=== PATIENT | male | born 1945 | race Caucasian/White ===

== ENCOUNTER 2021-12-20 09:38 | Outpatient (RCR) | payer MEDICARE, SELFPAY ==
--- OUTSIDE RECORDS SUMMARY | 2021-12-01 08:59 | XMS_ITS | Continuity of Care Document ---
:1945 Author Care Team Providers Name Role Phone MD Pham Attending Physician Unavailable MD Garland Guillen Primary Care Physician Allergies, Adverse Reactions, Alerts No known allergies Social History Smoking Status Status Start Date End Date Date of Observat ion Never smoked tobacco January 05, 2021 2:08pm (finding) Observation Status Observation Response Date of Response Health care directive on file December 02, 2020 9:43am Additional Data Assigned Sex Male Problems Active Problems Medical Problem Onset Date Status Chronic myeloid leukemia, March 24, 2012 Active disease Sinusitis, acute Active History of vasectomy Active Medications Medication Status Dose Units Route Directions Qty Days Start End Ins tructions Date Date Ascorbic Acid Active 500 MG OR Twice A Day (Vitamin C) 500 Mg CAP Bosutinib Active 300 MG PO Daily March take 3 - 100 (Bosulif) 100 11, mg tab lets Mg TAB 2020 daily on 10:08am Saturday through Saturday. Cholecalcifer Active 1000 UNIT PO Daily 100 ol (Vitamin D) 1,000 Unit TAB Glucosamine-C Active 1 CAP PO Daily hondroitin (Glucosamine & Chondroitin 500-400 Mg) 1 Cap CAP Multiple Active 1 HIM OR Daily Vitamins W/ Minerals (Multi For Him 50+) For Him TAB Xilwr-7-Uylr Active 1200 MG PO Daily 100 ON HOL D PER Ethyl Esters PATIENT (Fish Oil) 1,200 Mg CAP Amoxicillin Discontin 1000 MG PO Twice Daily 40 Februar Fe brua ued For 10 Days y 2018 10th, 10:24am 2018 11:50a m Amoxicillin Discontin 875 MG PO Twice Daily September ued For 10 Days , 2016 9:46am 3:19pm Benzonatate Discontin 200 MG PO Three Times 30 Februar Fe brua (Tessalon ued A Day as y 10th, ry Perles) 100 needed 2018 10th, Mg CAP 11:46am 2018 11:50a m Bosutinib Discontin 300 MG PO Daily Marchobe dayanara e 3 - 100 (Bosulif) 100 ued 11, r mg tab lets Mg TAB 2020 11, daily. 9:15am 2020 10:08a m Bosutinib Discontin 300 MG PO Daily December take 3 - 100 (Bosulif) 100 ued 7th, r mg tab lets Mg TAB 2020 11, daily. 4:18pm 2020 9:15am Bosutinib Discontin 300 MG PO Daily 90 uadecember take 3 - 100 (Bosulif) 100 ued y 2nd, 7th, mg ta blets Mg TAB 2020 2020 daily. 10:53am 4:18pm Bosutinib Discontin 500 MG PO Daily 30 09 July Februa (Bosulif) 500 ued , ry Mg TAB 2020 07, 11:16am 2020 10:53a m Clindamycin Discontin 300 MG PO Three Times March Oc [facility] Hcl ued A Day r 2017, 3:41pm 2017 2:12pm Covid-19 Discontin 30 MCG IM Once January (Sars-Cov-2) ued , , Mrna Vir 2020 2020 (Pfizer-Biont 9:57am 12:14p ech Covid-19) m 30 Mcg/0.3 Ml INJ Diphtheria/Te Discontin 0.5 ML IM Once 1 Decembe Decemb tanus/Acell ued r , er Pertussis 2011 09, (Adacel) 0.5 2:29pm 2012 Ml INJ 2:32pm Fish Oil Discontin 2000 MG PO As Needed December ued 2019 11:18a m Glucosamine/C Discontin 1 EA PO Twice A Day Oc charity hondroitin ued r , (Glucosamine 2018 Chondroitin) 10:22a TAB m Imatinib Discontin 200 MG PO Daily 60 30 Novembe Januar take 2 Mesylate ued r 11, y tablets d aily 2019, 12:22pm 2020 11:16a m Imatinib Discontin 400 MG PO Daily Juneb Mesylate ued , er 2020 04, 12:36pm 2019 12:22p m Imatinib Discontin 400 MG PO Daily October Mesylate ued , , (Gleevec) 400 2012 2020 Mg TAB 9:36am 11:18a m Imatinib Discontin 400 MG PO Daily October Mesylate ued , (Gleevec) 400 2012 Mg TAB 9:36am Magnesium Discontin 125 MG PO Octobe Citrate (Mg ued r , Supple2017 (Magnesium 10:22a Citrate) 125 m Mg CAP Magnesium Discontin 250 MG OR Daily Octobe Oxide (Mg ued r Supplement , (Magnesium 2016 Oxide) 250 Mg 12:09p TAB m Ugmgl-5-Nhwj Discontin 360 MG PO Twice A Day 100 Oct obe Ethyl Esters ued r (Fish Oil) , 500 Mg CAP 2015 12:09p m Itltz-8-Dplv Discontin 1200 MG OR Twice A Day October Ethyl Esters ued , (Fish Oil) 2014 1,200 Mg CAP 10:54a m Oregano (Oil Discontin 1 SERA OR Daily Octobe Of Oregano) ued r Oil CAP 2013 12:34p m Prednisone Discontin 20 MG PO Daily December ued 2016 3:34pm 2:53pm Prednisone Discontin 20 MG PO Daily September ued , 2012 9:46am 2:40pm Immunizations Immunization Event Date Not Given Dose Hospital Nurse Liaison Lot Vac cine Reason Number Number Informatio n Statement (VIS) Deta il COVID-19 Pfizer June 102020 COVID-19 Pfizer July 122020 COVID-19 Pfizer February 07 PFIZER-BIO 2020 Influenza March 102019 Tdap May 10 sanofi pasteur [id number] (adolescent/adul 2011 t) Medical Equipment Device Date Implanted Device Details TECNIS IOL February 18, 2019 ROBERTO: [id number] Issuing Agency: [id number] Device Id: [id number] Expiration Date: 07-19-13 Serial Number: [id number] Relevant Diagnostic Tests and/or Laboratory Data Laboratory Results Test Date/Time Result Interpretation Reference Result Comment Performing Range Site White Blood November 08, 2.98 5.00-10.00 [facility] Count 2021 [address] [facility] 9:49am [facility] [address] Red Blood November 08, 4.20 4.32-5.72 [facility] Count 2021 [address] [facility] 9:49am [place] [address] Hemoglobin November 08, 13.6 13.5-17.5 [facility] 2021 [address] [facility] 9:49am [place] [address] Hematocrit November 08, 40.5 38.8-50.0 [facility] Lab 2021 [address] [facility] 9:49am [place] [address] Mean November 08, 96 81-95 [facility] Corpuscular 2021 [address] [facility] Volume 9:49am [place] [address] Mean November 08, 32 27-34 [facility] Corpuscular 2021 [address] [facility] Hemoglobin 9:49am [place] [address] Mean November 08, 34 32-36 [facility] Corpuscular 2021 [address] [facility] Hemoglobin 9:49am [place] [address] Concent Platelet November 08, 185 150-450 [facility] Count 2021 [address] [facility] 9:49am [place] [address] RDW November 08, 12.2 11.5-15.3 [facility] Coefficient 2021 [address] [facility] of Variation 9:49am [facility] [place] [address] Neutrophils November 08, 63.5 50.0-70.0 [facility] (%) (Auto) 2021 [address] [facility] 9:49am [place] [address] Lymphocytes November 08, 21.1 25.0-45.0 [facility] (%) (Auto) 2021 [address] [facility] 9:49am [place] [address] Monocytes November 08, 12.4 0.00-11.0 [facility] (%) (Auto) 2021 [address] [facility] 9:49am [place] [address] Eosinophils November 08, 2.3 0.0-7.0 [facility] (%) (Auto) 2021 [address] [facility] 9:49am [place] [address] Basophils November 08, 0.7 0.0-3.0 [facility] (%) (Auto) 2021 [address] [facility] 9:49am [place] [address] Immature November 08, 0.0 [facility] Granulocyte 2021 [address] [facility] % (Auto) 9:49am [place] [address] Neutrophils November 08, 1.89 1.70-7.00 [facility] # (Auto) 2021 [address] [facility] 9:49am [facility] [address] Lymphocytes November 08, 0.63 0.90-2.90 [facility] # (Auto) 2021 [address] [facility] 9:49am [facility] [address] Monocytes # November 08, 0.37 0.30-0.90 [facility] Lab (Auto) 2021 [address] [facility] 9:49am [facility] [address] Eosinophils November 08, 0.07 0.00-0.50 [facility] # (Auto) 2021 [address] [facility] 9:49am [facility] [address] Basophils # November 08, 0.02 0.00-0.20 [facility] Lab (Auto) 2021 [address] [facility] 9:49am [facility] [address] Immature November 08, 0.00 [facility] Granulocyte 2021 [address] [facility] # (Auto) 9:49am [facility] [address] Random November 08, 94 60-115 [facility] Glucose 2021 [address] [facility] 9:49am [facility] [address] Blood Urea November 08, 14 7-30 [facility] Nitrogen 2021 [address] [facility] 9:49am [facility] [address] Creatinine November 08, 0.7 0.5-1.5 [facility] 2021 [address] [facility] 9:49am [facility] [address] Estimated November 08, Patient [facility] Creatinine 2021 height/weight [address] [facility] Clearance 9:49am data not [facility] [address] available Sodium Level November 08, 134 135-149 [facility] 2021 [address] [facility] 9:49am [facility] [address] Potassium November 08, 4.3 3.6-5.1 [facility] Level 2021 [address] [facility] 9:49am [facility] [address] Chloride November 08, 98 96-114 [facility] Level 2021 [address] [facility] 9:49am [facility] [address] Carbon November 08, 30 20-32 [facility] Dioxide 2021 [address] [facility] Level 9:49am [facility] [address] Calcium November 08, 8.8 8.4-10.6 [facility] Level 2021 [address] [facility] 9:49am [facility] [address] Total November 08, 6.1 6.0-8.3 The use of [facility] Protein 2021 Eltrombopag, a [address] [facility] 9:49am [place] [address] stimulant used to treat thrombocytopeni a and aplastic anemia, interferes with this measurement of total protein. A 5% bias has been observed. Albumin November 08, 4.2 3.3-5.0 [facility] 2021 [address] [facility] 9:49am [place] [address] Total November 08, 1.0 0.1-1.5 [facility] Bilirubin 2021 [address] [facility] 9:49am [place] [address] Aspartate November 08, 35 12-35 [facility] Amino Transf [address] (AST/SGOT) 9:49am [facility] [place] [address] Alanine November 08, 24 4-50 [facility] Aminotransfe [address] rase 9:49am [facility] [address] (ALT/SGPT) Alkaline November 08, 75 40-150 [facility] Phosphatase [address] [facility] [address] [address] 9:49am [place] [address] Lactate November 08, 465 313-618 [facility] Dehydrogenas [address] e 9:49am [place] [address] BCR/abl November 08, Not [facility] t(9;22) [address] Source 9:49[place] [address] BCR/abl1 November 08, Detected BCR-ABL1 fusion [facility] Major (p210) [address] Result 9:49am (p210 forms) [facility] [address] were detected byRT-qPCR.This result has been reviewed and approved by Obed Salinas M.D., Ph.D.INTERPRETI VE INFORMATION: BCR-ABL1, Major (p210), QuantitativeIN TERPRETATIONThi s assay quantified BCR-ABL1 transcripts (e13a2 and e14a2) fordiagnosis and ongoing therapeutic monitoring. BCR-AST8psmtjed cations with BCR breakpoints in the major breakpointclust er region result in the p210 fusion protein and are seen innearly all cases of chronic myelogenous leukemia (CML) and in afew cases of acute lymphoblastic leukemia (ALL). To facilitatethe interlaboratory comparison of findings and the assessment ofmolecular milestones (major molecular response or MMR), resultsreported use the international scale (IS; see Kan MC et al,Leukemia 2009;23:1957-19 63).METHODSTota l RNA was isolated and converted to cDNA; BCR-ABL1 fusionswere quantitated by real-time PCR amplification with primersdesigned to detect the major (p210) BCR-ABL1 breakpoint,incl uding fusions between BCR exon 13 and ABL1 exon 2 (e13a2)and BCR exon 14 and ABL1 exon 2 (e14a2). Each PCR assay includesa standard curve for BCR-ABL1 and the ABL1 control.The normalized copy number(NCN)is calculated and converted to avalue on the international scale (IS) using a validatedrefere nce sample (provided by Teodora Schmitz MD; see Zina et al, Blood 2010;116:111-11 7) that was calibrated to astandard set of diagnostic specimens defined during the originaltrial of tyrosine kinase inhibitor therapy in CML patients(Torri TP et al, [facility] 2003;349:1423-1 432).LIMITATION SThe limit of detection of this assay is 1 BCR-ABL1 positive cellin 125,000 normal cells. The limit of quantification is 0.0069percent IS. This assay does not detect transcripts resultingfrom a rare BCR-ABL1 rearrangement with a BCR exon 19 breakpointthat results in the p230 fusion protein and does not detect theMinor breakpoint (p190). The results of this test must beinterpreted in the context of morphologic and other relevantdata, and should not be used alone for a diagnosis of malignancy.This test was developed and its performance characteristics determined by [employer]. It has not been cleared orapproved by the [place] Food and Drug Administration. This test wasperformed in a CLIA certified laboratory and is intended forclinical purposes. BCR/abl1 November 08, 0.1570 [facility]ation[facility] [address] l Scale % 9:49am [facility] [address] BCR/abl1 November 08, See Note Authorized [facility] Major (p210) 2021 individuals can [address] EER 9:49am access the [facility] [address] ARUPEnhanced Report using the following link:[email or web address] ed By: [facility] [place], [place] [address]Kiqjnabtbu Director: Sun Pang MD Advance Directives Advance Directive Response Recorded Date/Time Has patient completed a No January 05, 2021 2:08pm Health Care Directive? Insurance Providers Guarantor Nely Cooley Address [address] [place] [address] [address] [facility] [id number] Contact Info. Home Phone: HOME Payer Policy Id Coverage Id Subscriber's Subscriber Id Effective E xpiration Name Date Date [facility] [id number] Nely Cooley Medicare T Plans Encounters Encounter Location(s) Arrival/Admit Date Discharge/Depart Date Provider(s) Registered [place] November 22, 2021 Lia Nath [facility] 6:55am Plan of Treatment Future Tests Future scheduled test information is unavailable Pending Tests Pending diagnostic test information is unavailable Future Visits Future appointment information is unavailable Referrals to Other Providers Referral information is unavailable Future Procedures Future procedure information is unavailable Future Medications Future medication information is unavailable Patient Instructions Bone Marrow Biopsy (DC)
[2021-12-20 10:00] LABS: Basophils Percent Auto 0.5 % (0.0-3.0); Eosinophils Percent Auto 5.7 % (0.0-7.0); Hematocrit 41.5 % (37.0-53.0); Hemoglobin* 13.9 gm/dL (13.5-17.5); Immature Granulocytes Abs Auto 0.01 K/uL (0.00-0.30); Lymphocytes Percent Auto 16.5 % (20-44); Mean Corpuscular HGB Conc 34 gm/dL (32-36); Mean Corpuscular Hemoglobin 32 pg (26-34); Mean Corpuscular Volume 97 fL (80-100); Monocytes Percent Auto 13.3 % (0.0-11.0); Neutrophils Percent Auto 63.8 % (42.0-72.0); Platelet Count* 192 K/uL (140-440); RDW Coefficient of Variation % 12.4 % (11.5-15.5); Red Blood Count 4.29 m/uL (4.30-5.90); White Blood Count* 4.06 K/uL (4.50-11.00)
[2021-12-20 10:11] LABS: Albumin* 4.5 g/dL (3.3-5.0); Chloride* 100 mmol/L (96-114); Potassium* 4.3 mmol/L (3.6-5.1); Sodium* 136 mmol/L (135-149)
[2021-12-20 10:13] LABS: Carbon Dioxide* 28 mmol/L (20-32); Creatinine* 0.8 mg/dL (0.5-1.5); Estimated Glomerular Filt Rate 92.87
[2021-12-20 10:14] LABS: Alanine Aminotransferase* 20 U/L (4-50); Alkaline Phosphatase* 93 U/L (40-150); Aspartate Amino Transferase* 36 U/L (12-35); Blood Urea Nitrogen* 18 mg/dL (7-30); Glucose* 104 mg/dL (60-115); Total Protein* 6.4 g/dL (6.0-8.3)
[2021-12-20 10:20] LABS: Slide Review Reflex No
--- NOTE | 2021-12-21 10:51 | ONC.NURNOTE ---
Lab results reviewed by Dr Nath and message left for Bird on VM
== END 2022-01-07 23:59 | disposition home or self-care (01) ==
LOC: CCIC 09:38
PROVIDERS: PCP Internal Medicine; Visit Provider Internal Medicine Hematology & Oncology
DX: C92.10 Chronic myeloid leukemia, BCR/ABL-positive, not having achieved remission (principal)
CPT/HCPCS: 36415; 80053; 85025

== ENCOUNTER 2022-07-03 09:30 | Outpatient (RCR) | payer MEDICARE, SELFPAY ==
[2022-01-16 13:57] LABS: Basophils Percent Auto 0.3 % (0.0-3.0); Eosinophils Percent Auto 2.1 % (0.0-7.0); Hematocrit 38.9 % (37.0-53.0); Hemoglobin* 12.9 gm/dL (13.5-17.5); Lymphocytes Percent Auto 20.5 % (20-44); Mean Corpuscular HGB Conc 33 gm/dL (32-36); Mean Corpuscular Hemoglobin 32 pg (26-34); Mean Corpuscular Volume 97 fL (80-100); Monocytes Percent Auto 10.4 % (0.0-11.0); Neutrophils Percent Auto 66.7 % (42.0-72.0); Platelet Count* 190 K/uL (140-440); RDW Coefficient of Variation % 12.5 % (11.5-15.5); Red Blood Count 4.03 m/uL (4.30-5.90); White Blood Count* 3.86 K/uL (4.50-11.00)
[2022-01-16 14:03] LABS: Slide Review Reflex No
[2022-01-16 14:19] LABS: Albumin* 4.1 g/dL (3.3-5.0); Chloride* 100 mmol/L (96-114)
[2022-01-16 14:20] LABS: Potassium* 3.9 mmol/L (3.6-5.1); Sodium* 134 mmol/L (135-149)
[2022-01-16 14:22] LABS: Alkaline Phosphatase* 91 U/L (40-150); Aspartate Amino Transferase* 29 U/L (12-35); Bilirubin Total* 0.7 mg/dL (0.1-1.5); Blood Urea Nitrogen* 17 mg/dL (7-30); Carbon Dioxide* 28 mmol/L (20-32); Creatinine* 0.7 mg/dL (0.5-1.5); Estimated Glomerular Filt Rate 97 ml/min; Total Protein* 6.3 g/dL (6.0-8.3)
[2022-01-16 14:23] LABS: Alanine Aminotransferase* 18 U/L (4-50); Calcium* 8.6 mg/dL (8.4-10.6); Glucose* 119 mg/dL (60-115)
--- NOTE | 2022-01-17 15:49 | ONC.NURNOTE ---
lab results reviewed by Dr Nath and called to Bird osorio appts reviewed reports no new concerns or changes with Bosulif
[2022-02-14 10:05] LABS: Basophils Percent Auto 0.3 % (0.0-3.0); Hematocrit 41.3 % (37.0-53.0); Hemoglobin* 13.9 gm/dL (13.5-17.5); Immature Granulocytes Abs Auto 0.02 K/uL (0.00-0.30); Lymphocytes Percent Auto 21.6 % (20-44); Mean Corpuscular HGB Conc 34 gm/dL (32-36); Mean Corpuscular Hemoglobin 33 pg (26-34); Mean Corpuscular Volume 97 fL (80-100); Monocytes Percent Auto 13.2 % (0.0-11.0); Neutrophils Percent Auto 62.3 % (42.0-72.0); Platelet Count* 178 K/uL (140-440); RDW Coefficient of Variation % 12.6 % (11.5-15.5); Red Blood Count 4.27 m/uL (4.30-5.90); White Blood Count* 3.48 K/uL (4.50-11.00)
[2022-02-14 10:08] LABS: Slide Review Reflex No
[2022-02-14 10:15] LABS: Albumin* 4.2 g/dL (3.3-5.0); Chloride* 100 mmol/L (96-114); Potassium* 4.6 mmol/L (3.6-5.1); Sodium* 135 mmol/L (135-149)
[2022-02-14 10:17] LABS: Creatinine* 0.7 mg/dL (0.5-1.5); Estimated Glomerular Filt Rate 96 ml/min
[2022-02-14 10:18] LABS: Alanine Aminotransferase* 18 U/L (4-50); Alkaline Phosphatase* 90 U/L (40-150); Aspartate Amino Transferase* 30 U/L (12-35); Bilirubin Total* 0.9 mg/dL (0.1-1.5); Blood Urea Nitrogen* 16 mg/dL (7-30); Carbon Dioxide* 29 mmol/L (20-32); Glucose* 89 mg/dL (60-115); Total Protein* 6.5 g/dL (6.0-8.3)
--- NOTE | 2022-02-14 11:14 | ONC.NURNOTE ---
Message left on VM- labs stable with in his norm sees Dr Nath in 2 weeks BCR/ABL pending
[2022-03-13 09:55] LABS: Eosinophils Percent Auto 0.8 % (0.0-7.0); Hematocrit 39.5 % (37.0-53.0); Hemoglobin* 13.2 gm/dL (13.5-17.5); Lymphocytes Percent Auto 17.8 % (20-44); Mean Corpuscular HGB Conc 33 gm/dL (32-36); Mean Corpuscular Hemoglobin 32 pg (26-34); Mean Corpuscular Volume 97 fL (80-100); Monocytes Percent Auto 11.6 % (0.0-11.0); Neutrophils Percent Auto 69.8 % (42.0-72.0); Platelet Count* 172 K/uL (140-440); RDW Coefficient of Variation % 12.6 % (11.5-15.5); Red Blood Count 4.08 m/uL (4.30-5.90); White Blood Count* 3.54 K/uL (4.50-11.00)
[2022-03-13 09:59] LABS: Slide Review Reflex No
[2022-03-13 10:17] LABS: Albumin* 4.4 g/dL (3.3-5.0); Chloride* 100 mmol/L (96-114); Potassium* 4.2 mmol/L (3.6-5.1); Sodium* 134 mmol/L (135-149)
[2022-03-13 10:19] LABS: Creatinine* 0.7 mg/dL (0.5-1.5); Estimated Glomerular Filt Rate 96 ml/min
[2022-03-13 10:20] LABS: Alanine Aminotransferase* 20 U/L (4-50); Alkaline Phosphatase* 88 U/L (40-150); Aspartate Amino Transferase* 32 U/L (12-35); Blood Urea Nitrogen* 13 mg/dL (7-30); Calcium* 9.2 mg/dL (8.4-10.6); Carbon Dioxide* 28 mmol/L (20-32); Glucose* 99 mg/dL (60-115); Total Protein* 6.8 g/dL (6.0-8.3)
--- NOTE | 2022-03-15 14:39 | ONC.NURNOTE ---
Lab results reviewed by Dr Nath on Saturday and called to Bird today Reports no concerns or changes next appts reviewed
[2022-04-10 09:47] LABS: Basophils Percent Auto 0.3 % (0.0-3.0); Eosinophils Percent Auto 1.6 % (0.0-7.0); Hematocrit 40.2 % (37.0-53.0); Hemoglobin* 13.4 gm/dL (13.5-17.5); Immature Granulocytes Abs Auto 0.02 K/uL (0.00-0.30); Mean Corpuscular HGB Conc 33 gm/dL (32-36); Mean Corpuscular Hemoglobin 32 pg (26-34); Mean Corpuscular Volume 97 fL (80-100); Monocytes Percent Auto 14.6 % (0.0-11.0); Neutrophils Percent Auto 62.9 % (42.0-72.0); Platelet Count* 193 K/uL (140-440); RDW Coefficient of Variation % 12.6 % (11.5-15.5); Red Blood Count 4.14 m/uL (4.30-5.90); White Blood Count* 3.15 K/uL (4.50-11.00)
[2022-04-10 10:04] LABS: Slide Review Reflex No
[2022-04-10 10:06] LABS: Albumin* 4.4 g/dL (3.3-5.0); Chloride* 100 mmol/L (96-114); Sodium* 135 mmol/L (135-149)
[2022-04-10 10:07] LABS: Potassium* 4.4 mmol/L (3.6-5.1)
[2022-04-10 10:09] LABS: Alanine Aminotransferase* 24 U/L (4-50); Alkaline Phosphatase* 86 U/L (40-150); Aspartate Amino Transferase* 31 U/L (12-35); Bilirubin Total* 0.9 mg/dL (0.1-1.5); Blood Urea Nitrogen* 15 mg/dL (7-30); Carbon Dioxide* 28 mmol/L (20-32); Creatinine* 0.8 mg/dL (0.5-1.5); Estimated Glomerular Filt Rate 92 ml/min; Glucose* 91 mg/dL (60-115); Lactate Dehydrogenase* 435 U/L (313-618); Total Protein* 6.5 g/dL (6.0-8.3)
[2022-04-10 10:10] LABS: Calcium* 8.9 mg/dL (8.4-10.6)
--- NOTE | 2022-04-11 14:36 | ONC.NURNOTE ---
Lab reviewed by Dr Nath and called to Bird reported as stable, including LFTs in the normal range Bird reports no noted side effects, tolerating with out concerns confirmed dose M-F 300mg next lab and appt reviewed
--- NOTE | 2022-05-07 13:11 | ONC.NURNOTE ---
Nik out since 05/04/22 refills needed new RX to be faxed to [facility]
[2022-05-15 10:01] LABS: Basophils Percent Auto 0.2 % (0.0-3.0); Eosinophils Percent Auto 3.2 % (0.0-7.0); Hematocrit 40.2 % (37.0-53.0); Hemoglobin* 13.5 gm/dL (13.5-17.5); Immature Granulocytes Pct Auto 0.2 %; Lymphocytes Percent Auto 17.9 % (20-44); Mean Corpuscular HGB Conc 34 gm/dL (32-36); Mean Corpuscular Hemoglobin 33 pg (26-34); Mean Corpuscular Volume 97 fL (80-100); Monocytes Percent Auto 12.2 % (0.0-11.0); Neutrophils Percent Auto 66.3 % (42.0-72.0); Platelet Count* 160 K/uL (140-440); RDW Coefficient of Variation % 12.6 % (11.5-15.5); Red Blood Count 4.13 m/uL (4.30-5.90); White Blood Count* 4.03 K/uL (4.50-11.00)
[2022-05-15 10:07] LABS: Slide Review Reflex No
[2022-05-15 10:14] LABS: Chloride* 102 mmol/L (96-114)
[2022-05-15 10:15] LABS: Albumin* 4.4 g/dL (3.3-5.0); Sodium* 137 mmol/L (135-149)
[2022-05-15 10:17] LABS: Aspartate Amino Transferase* 34 U/L (12-35); Bilirubin Total* 0.8 mg/dL (0.1-1.5); Carbon Dioxide* 30 mmol/L (20-32); Creatinine* 0.7 mg/dL (0.5-1.5); Estimated Glomerular Filt Rate 96 ml/min
[2022-05-15 10:18] LABS: Alanine Aminotransferase* 28 U/L (4-50); Alkaline Phosphatase* 89 U/L (40-150); Blood Urea Nitrogen* 19 mg/dL (7-30); Calcium* 8.8 mg/dL (8.4-10.6); Glucose* 80 mg/dL (60-115); Lactate Dehydrogenase* 196 U/L (120-246); Total Protein* 6.5 g/dL (6.0-8.3)
--- NOTE | 2022-05-15 13:10 | ONC.NURNOTE ---
Labs reviewed by Dr Nath and called to Bird as stable has followup in 2 weeks reports no concerns or changes with Bosulif
--- NOTE | 2022-05-15 14:13 | ONC.NURNOTE ---
re-enrollment application faxed to [facility]
--- NOTE | 2022-05-31 15:19 | ONC.NURNOTE ---
Pt called today stating he did test positive for COVID today.
[2022-06-07 12:28] LABS: QuantBCR-ABL Major p210 Source Detected
[2022-06-19 09:31] LABS: Eosinophils Percent Auto 3.5 % (0.0-7.0); Hematocrit 41.2 % (37.0-53.0); Hemoglobin* 13.8 gm/dL (13.5-17.5); Mean Corpuscular HGB Conc 34 gm/dL (32-36); Mean Corpuscular Hemoglobin 32 pg (26-34); Mean Corpuscular Volume 96 fL (80-100); Monocytes Percent Auto 13.7 % (0.0-11.0); Neutrophils Percent Auto 59.8 % (42.0-72.0); Platelet Count* 172 K/uL (140-440); RDW Coefficient of Variation % 12.4 % (11.5-15.5); Red Blood Count 4.28 m/uL (4.30-5.90); White Blood Count* 2.56 K/uL (4.50-11.00)
[2022-06-19 09:32] LABS: Slide Review Reflex No
[2022-06-19 09:45] LABS: Albumin* 4.6 g/dL (3.3-5.0); Chloride* 100 mmol/L (96-114)
[2022-06-19 09:46] LABS: Sodium* 135 mmol/L (135-149)
[2022-06-19 09:48] LABS: Aspartate Amino Transferase* 34 U/L (12-35); Carbon Dioxide* 30 mmol/L (20-32); Creatinine* 0.7 mg/dL (0.5-1.5); Estimated Glomerular Filt Rate 96 ml/min; Total Protein* 6.8 g/dL (6.0-8.3)
[2022-06-19 09:49] LABS: Alanine Aminotransferase* 26 U/L (4-50); Alkaline Phosphatase* 74 U/L (40-150); Blood Urea Nitrogen* 13 mg/dL (7-30); Glucose* 83 mg/dL (60-115)
--- NOTE | 2022-06-19 11:09 | ONC.NURNOTE ---
Labs noted and called to Bird Noted WBC dose bosulif increased 3 weeks ago
--- NOTE | 2022-06-20 09:32 | ONC.NURNOTE ---
Extra CBC for monitoring of ANC after Bosulif dose increase last month Bird brandtable and appt set up for 2 weeks
[2022-07-03 10:12] LABS: Basophils Percent Auto 0.3 % (0.0-3.0); Eosinophils Percent Auto 2.4 % (0.0-7.0); Hematocrit 40.7 % (37.0-53.0); Hemoglobin* 13.5 gm/dL (13.5-17.5); Lymphocytes Percent Auto 17.2 % (20-44); Mean Corpuscular HGB Conc 33 gm/dL (32-36); Mean Corpuscular Hemoglobin 32 pg (26-34); Mean Corpuscular Volume 97 fL (80-100); Monocytes Percent Auto 12.4 % (0.0-11.0); Neutrophils Percent Auto 67.7 % (42.0-72.0); Platelet Count* 189 K/uL (140-440); RDW Coefficient of Variation % 12.6 % (11.5-15.5); Red Blood Count 4.19 m/uL (4.30-5.90); White Blood Count* 3.38 K/uL (4.50-11.00)
[2022-07-03 10:26] LABS: Slide Review Reflex No
--- NOTE | 2022-07-03 11:59 | ONC.NURNOTE ---
Bird received phone call from [employer] that he has been re-enrolled in [facility] for 2022 no written confirmation has been received
--- NOTE | 2022-07-03 12:00 | ONC.NURNOTE ---
extra CBC reviewed WBC is stable and improved will continue with the same schedule as previously scheduled- with a provider appt with Dr Granger on 08/30/22
== END 2022-07-15 23:59 | disposition home or self-care (01) ==
LOC: CCIC 09:30
PROVIDERS: Clinical Nurse Specialist; PCP Internal Medicine; Referring Provider Internal Medicine; Visit Provider Internal Medicine Hematology & Oncology
DX: C92.10 Chronic myeloid leukemia, BCR/ABL-positive, not having achieved remission (principal)
CPT/HCPCS: 36415; 80053; 81206; 83615; 85025; 99212; 99213; 99214

== ENCOUNTER 2022-08-30 10:30 | Outpatient (RCR) | payer MEDICARE, SELFPAY ==
--- NOTE | 2022-07-20 09:08 | ONC.NURNOTE ---
Message left on patient's voicemail to continue same dose of Bosulif after Dr. Granger reviewed blood work done. Patients next appointment is August 14.
== END 2022-08-30 11:15 | disposition home or self-care (01) ==
PROVIDERS: PCP Internal Medicine; Visit Provider Student in an Organized Health Care Education/Training Program
DX: M54.9 Dorsalgia, unspecified (principal); M54.2 Cervicalgia; G89.29 Other chronic pain; Z51.89 Encounter for other specified aftercare
CPT/HCPCS: 97110; 97140; 97161

== ENCOUNTER 2022-10-30 15:15 | Outpatient (RCR) | payer MEDICARE, SELFPAY ==
--- NOTE | 2022-10-19 12:29 | OT.OPGNE ---
OT Outpatient General/Neuro Eval OT Outpatient General/Neuro Eval Start: 10/18/22 14:34 Freq: Status: Active Protocol: Document 10/17/22 14:37 SMW (Rec: 10/18/22 14:38 TRAYW [id number]) E-signed By Gracia Ceja OT OT Outpatient Evaluation Details Type Type Eval Complexity Low Insurance Information Insurance Information Insurance Information [employer] Outpatient History/Precautions Medical/Functional History Medical History Reviewed Yes: Has had CML since 2010. Prior Level of Function/Mobility The patient lives with spouse at [facility]. He is I in all ADLs and mobility. Current Condition Treatment Diagnosis mild cognitive impairment Social History Type of Dwelling Apartment Number of Floors (Floors) 1 Number of Stairs to Enter (Stairs) 0 Lives With: Spouse Physical Barriers in Home Environment Level, No Step Employment Status Retired Oriented Patient Orientation Person,Place,Time,Situation Prior Medical History Prior Medical History Was diagnosed with CML in 2010 . Is taking oral chemo to manage his disease. Patient Subjective Subjective Patient Subjective I think that I am doing fine. Cognitive Assessments Performed Cognitive Assessments Performed Sullivan Cognitive Assessment (MOCA) Results Comments Cognitive Assessments Performed Comments Previous MoCa in November Assessment Assessment Assessment The patient is a 77 year old male referred to outpatient OT for a cognitive assessment to determine need for compensatory strategies. The patient lives with his spouse in a senior apartment. He is I in ADLs and mobility without an AD. He has been on oral chemo since 2010 for CML. Patient had been seen by this therapist in November of 2020 for same diagnosis. At that time, the patient scored 25/30, and trail making A and B and MAZE test all WNL. Today, the patient scored 28/30 on the MOCA. The patient's spouse appears to have more concerns regarding the patient's cognition. 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 He was dressed for the weather and quickly realized his mistake. The patient is agreeable to completing additional cognitive assessments to determine baseline and educate on compensatory strategies. Occupational Therapy Treatment Plan - OP Potential Rehabilitation Potential Good Set Goals Goals Set with Patient Yes Goals Goals Within 3 sessions, the patient will.. 1. complete cognitive assessments to determine need for increased oversight and provide compensatory strategies for daily living. 2. along with his spouse, will verbalize understanding of assessment results and recommendations. Progress set Treatment Plan Treatment Plan Evaluation,Self-Care/Home Management Expected Frequency 1x Week Expected Duration 2-4 Weeks Certification Certification I Certify That: Therapy Services Provided, Therapy Plan Established, Therapy Plan Reviewed Recertification Information Recertification Information Initial Certification Date 10/17/22 Recertification Start Date 10/17/22
== END 2023-02-27 23:59 | disposition home or self-care (01) ==
PROVIDERS: PCP Student in an Organized Health Care Education/Training Program; Visit Provider Clinical Nurse Specialist
DX: G31.84 Mild cognitive impairment of uncertain or unknown etiology (principal); Z51.89 Encounter for other specified aftercare
CPT/HCPCS: 96125; 97165; 97535

== ENCOUNTER 2023-01-08 09:00 | Outpatient (RCR) | payer MEDICARE, SELFPAY ==
[2022-07-17 09:52] LABS: Basophils Percent Auto 0.8 % (0.0-3.0); Eosinophils Percent Auto 2.3 % (0.0-7.0); Hematocrit 41.6 % (37.0-53.0); Hemoglobin* 13.8 gm/dL (13.5-17.5); Immature Granulocytes Pct Auto 1.1 %; Lymphocytes Percent Auto 22.3 % (20-44); Mean Corpuscular HGB Conc 33 gm/dL (32-36); Mean Corpuscular Hemoglobin 32 pg (26-34); Mean Corpuscular Volume 97 fL (80-100); Monocytes Percent Auto 14.8 % (0.0-11.0); Neutrophils Percent Auto 58.7 % (42.0-72.0); Platelet Count* 180 K/uL (140-440); RDW Coefficient of Variation % 12.8 % (11.5-15.5); Red Blood Count 4.28 m/uL (4.30-5.90); White Blood Count* 2.64 K/uL (4.50-11.00)
[2022-07-17 09:55] LABS: Slide Review Reflex No
[2022-07-17 10:07] LABS: Albumin* 4.3 g/dL (3.3-5.0); Chloride* 102 mmol/L (96-114); Sodium* 136 mmol/L (135-149)
[2022-07-17 10:08] LABS: Potassium* 3.9 mmol/L (3.6-5.1)
[2022-07-17 10:10] LABS: Alkaline Phosphatase* 63 U/L (40-150); Aspartate Amino Transferase* 32 U/L (12-35); Carbon Dioxide* 29 mmol/L (20-32); Creatinine* 0.7 mg/dL (0.5-1.5); Estimated Glomerular Filt Rate 96 ml/min; Total Protein* 6.6 g/dL (6.0-8.3)
[2022-07-17 10:11] LABS: Alanine Aminotransferase* 25 U/L (4-50); Blood Urea Nitrogen* 17 mg/dL (7-30); Calcium* 8.9 mg/dL (8.4-10.6); Glucose* 95 mg/dL (60-115)
[2022-08-14 09:28] LABS: Basophils Percent Auto 0.4 % (0.0-3.0); Eosinophils Percent Auto 1.4 % (0.0-7.0); Hematocrit 40.8 % (37.0-53.0); Hemoglobin* 13.7 gm/dL (13.5-17.5); Immature Granulocytes Pct Auto 0.4 %; Lymphocytes Percent Auto 20.3 % (20-44); Mean Corpuscular HGB Conc 34 gm/dL (32-36); Mean Corpuscular Hemoglobin 32 pg (26-34); Mean Corpuscular Volume 97 fL (80-100); Monocytes Percent Auto 14.9 % (0.0-11.0); Neutrophils Percent Auto 62.6 % (42.0-72.0); Platelet Count* 181 K/uL (140-440); RDW Coefficient of Variation % 12.7 % (11.5-15.5); Red Blood Count 4.23 m/uL (4.30-5.90); White Blood Count* 2.81 K/uL (4.50-11.00)
[2022-08-14 09:30] LABS: Slide Review Reflex No
[2022-08-14 09:43] LABS: Albumin* 4.4 g/dL (3.3-5.0); Chloride* 100 mmol/L (96-114); Potassium* 4.1 mmol/L (3.6-5.1); Sodium* 134 mmol/L (135-149)
[2022-08-14 09:45] LABS: Creatinine* 0.6 mg/dL (0.5-1.5); Estimated Glomerular Filt Rate 101 ml/min
[2022-08-14 09:46] LABS: Alanine Aminotransferase* 22 U/L (4-50); Alkaline Phosphatase* 97 U/L (40-150); Aspartate Amino Transferase* 32 U/L (12-35); Blood Urea Nitrogen* 12 mg/dL (7-30); Carbon Dioxide* 30 mmol/L (20-32); Glucose* 94 mg/dL (60-115); Lactate Dehydrogenase* 199 U/L (120-246); Total Protein* 6.8 g/dL (6.0-8.3)
[2022-08-14 09:47] LABS: Calcium* 8.9 mg/dL (8.4-10.6)
[2022-08-22 20:51] LABS: QuantBCR-ABL Major p210 Source Not Provided
[2022-09-11 09:31] LABS: Basophils Percent Auto 0.3 % (0.0-3.0); Eosinophils Percent Auto 3.3 % (0.0-7.0); Hematocrit 39.9 % (37.0-53.0); Hemoglobin* 13.4 gm/dL (13.5-17.5); Lymphocytes Percent Auto 23.8 % (20-44); Mean Corpuscular HGB Conc 34 gm/dL (32-36); Mean Corpuscular Hemoglobin 32 pg (26-34); Mean Corpuscular Volume 96 fL (80-100); Monocytes Percent Auto 13.5 % (0.0-11.0); Neutrophils Percent Auto 59.1 % (42.0-72.0); Platelet Count* 177 K/uL (140-440); RDW Coefficient of Variation % 12.8 % (11.5-15.5); Red Blood Count 4.14 m/uL (4.30-5.90); White Blood Count* 3.03 K/uL (4.50-11.00)
[2022-09-11 09:37] LABS: Slide Review Reflex No
[2022-09-11 09:44] LABS: Albumin* 4.2 g/dL (3.3-5.0); Chloride* 102 mmol/L (96-114); Potassium* 4.2 mmol/L (3.6-5.1); Sodium* 134 mmol/L (135-149)
[2022-09-11 09:46] LABS: Creatinine* 0.6 mg/dL (0.5-1.5); Estimated Glomerular Filt Rate 101 ml/min
[2022-09-11 09:47] LABS: Alanine Aminotransferase* 19 U/L (4-50); Alkaline Phosphatase* 88 U/L (40-150); Aspartate Amino Transferase* 28 U/L (12-35); Bilirubin Total* 0.6 mg/dL (0.1-1.5); Blood Urea Nitrogen* 13 mg/dL (7-30); Calcium* 8.8 mg/dL (8.4-10.6); Carbon Dioxide* 30 mmol/L (20-32); Glucose* 96 mg/dL (60-115); Total Protein* 6.4 g/dL (6.0-8.3)
--- NOTE | 2022-09-11 11:48 | ONC.NURNOTE ---
Lab results reviewed with Bird as stable and with in patients armand reports several bouts of loose stools weekly, but has not needed to use imodium to manage otherwise feels well with current daily dosing bosutinib
--- NOTE | 2022-09-26 11:56 | ONC.NURNOTE ---
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
[2022-10-09 09:48] LABS: Basophils Percent Auto 0.3 % (0.0-3.0); Eosinophils Percent Auto 4.4 % (0.0-7.0); Hematocrit 41.5 % (37.0-53.0); Hemoglobin* 13.9 gm/dL (13.5-17.5); Immature Granulocytes Pct Auto 0.3 %; Lymphocytes Percent Auto 15.5 % (20-44); Mean Corpuscular HGB Conc 34 gm/dL (32-36); Mean Corpuscular Hemoglobin 32 pg (26-34); Mean Corpuscular Volume 97 fL (80-100); Monocytes Percent Auto 11.1 % (0.0-11.0); Neutrophils Percent Auto 68.4 % (42.0-72.0); Platelet Count* 202 K/uL (140-440); RDW Coefficient of Variation % 12.5 % (11.5-15.5); White Blood Count* 3.42 K/uL (4.50-11.00)
[2022-10-09 10:00] LABS: Albumin* 4.7 g/dL (3.3-5.0); Chloride* 100 mmol/L (96-114); Sodium* 134 mmol/L (135-149)
[2022-10-09 10:01] LABS: Potassium* 4.5 mmol/L (3.6-5.1)
[2022-10-09 10:03] LABS: Aspartate Amino Transferase* 33 U/L (12-35); Carbon Dioxide* 28 mmol/L (20-32); Creatinine* 0.6 mg/dL (0.5-1.5); Estimated Glomerular Filt Rate 101 ml/min
[2022-10-09 10:04] LABS: Alanine Aminotransferase* 23 U/L (4-50); Alkaline Phosphatase* 79 U/L (40-150); Blood Urea Nitrogen* 14 mg/dL (7-30); Total Protein* 7.1 g/dL (6.0-8.3)
[2022-10-09 10:05] LABS: Calcium* 8.9 mg/dL (8.4-10.6); Glucose* 86 mg/dL (60-115)
[2022-10-09 11:02] LABS: Slide Review Reflex No
[2022-11-13 09:39] LABS: Basophils Percent Auto 0.3 % (0.0-3.0); Eosinophils Percent Auto 2.3 % (0.0-7.0); Hematocrit 40.3 % (37.0-53.0); Hemoglobin* 13.5 gm/dL (13.5-17.5); Immature Granulocytes Pct Auto 0.3 %; Lymphocytes Percent Auto 19.7 % (20-44); Mean Corpuscular HGB Conc 34 gm/dL (32-36); Mean Corpuscular Hemoglobin 33 pg (26-34); Mean Corpuscular Volume 97 fL (80-100); Monocytes Percent Auto 11.3 % (0.0-11.0); Neutrophils Percent Auto 66.1 % (42.0-72.0); Platelet Count* 188 K/uL (140-440); RDW Coefficient of Variation % 12.8 % (11.5-15.5); Red Blood Count 4.16 m/uL (4.30-5.90)
[2022-11-13 09:55] LABS: Albumin* 4.4 g/dL (3.3-5.0); Chloride* 99 mmol/L (96-114); Sodium* 135 mmol/L (135-149)
[2022-11-13 09:56] LABS: Slide Review Reflex No
[2022-11-13 09:57] LABS: Creatinine* 0.6 mg/dL (0.5-1.5); Estimated Glomerular Filt Rate 101 ml/min
[2022-11-13 09:58] LABS: Alanine Aminotransferase* 20 U/L (4-50); Alkaline Phosphatase* 62 U/L (40-150); Aspartate Amino Transferase* 29 U/L (12-35); Bilirubin Total* 1.2 mg/dL (0.1-1.5); Blood Urea Nitrogen* 14 mg/dL (7-30); Calcium* 9.2 mg/dL (8.4-10.6); Carbon Dioxide* 29 mmol/L (20-32); Glucose* 107 mg/dL (60-115); Lactate Dehydrogenase* 196 U/L (120-246); Total Protein* 6.7 g/dL (6.0-8.3)
--- NOTE | 2022-11-13 13:16 | ONC.NURNOTE ---
Lab results called to Bird noted Bili and WBC RTC in 2 weeks with BCR ABl results (drawn today)
[2022-11-19 19:43] LABS: QuantBCR-ABL Major p210 Result Detected; QuantBCR-ABL Major p210 Source Not Provided
[2022-12-12 09:24] LABS: Basophils Percent Auto 0.3 % (0.0-3.0); Eosinophils Percent Auto 2.1 % (0.0-7.0); Hemoglobin* 13.9 gm/dL (13.5-17.5); Immature Granulocytes Pct Auto 0.3 %; Lymphocytes Percent Auto 23.3 % (20-44); Mean Corpuscular HGB Conc 33 gm/dL (32-36); Mean Corpuscular Hemoglobin 32 pg (26-34); Mean Corpuscular Volume 97 fL (80-100); Monocytes Percent Auto 13.2 % (0.0-11.0); Neutrophils Percent Auto 60.8 % (42.0-72.0); Platelet Count* 177 K/uL (140-440); RDW Coefficient of Variation % 12.6 % (11.5-15.5); Red Blood Count 4.33 m/uL (4.30-5.90); White Blood Count* 2.88 K/uL (4.50-11.00)
[2022-12-12 09:37] LABS: Slide Review Reflex No
[2022-12-12 09:41] LABS: Albumin* 4.5 g/dL (3.3-5.0); Chloride* 98 mmol/L (96-114); Sodium* 133 mmol/L (135-149)
[2022-12-12 09:42] LABS: Potassium* 4.2 mmol/L (3.6-5.1)
[2022-12-12 09:44] LABS: Alanine Aminotransferase* 20 U/L (4-50); Alkaline Phosphatase* 60 U/L (40-150); Aspartate Amino Transferase* 32 U/L (12-35); Bilirubin Total* 1.3 mg/dL (0.1-1.5); Blood Urea Nitrogen* 13 mg/dL (7-30); Carbon Dioxide* 29 mmol/L (20-32); Creatinine* 0.6 mg/dL (0.5-1.5); Estimated Glomerular Filt Rate 101 ml/min; Glucose* 100 mg/dL (60-115)
[2022-12-12 09:45] LABS: Calcium* 9.3 mg/dL (8.4-10.6)
--- NOTE | 2022-12-12 12:01 | ONC.NURNOTE ---
Lab results noted and called to Bird hooper Na- encouraged to salt foods reviewed bili- denies regular alcohol use and denies tylenol use WBC and ANC noted
[2023-01-08 09:19] LABS: Basophils Percent Auto 0.3 % (0.0-3.0); Eosinophils Percent Auto 2.3 % (0.0-7.0); Hematocrit 42.3 % (37.0-53.0); Hemoglobin* 14.1 gm/dL (13.5-17.5); Immature Granulocytes Pct Auto 0.6 %; Lymphocytes Percent Auto 18.1 % (20-44); Mean Corpuscular HGB Conc 33 gm/dL (32-36); Mean Corpuscular Hemoglobin 32 pg (26-34); Mean Corpuscular Volume 96 fL (80-100); Monocytes Percent Auto 11.9 % (0.0-11.0); Neutrophils Percent Auto 66.8 % (42.0-72.0); Platelet Count* 222 K/uL (140-440); RDW Coefficient of Variation % 12.4 % (11.5-15.5); Red Blood Count 4.41 m/uL (4.30-5.90); White Blood Count* 3.53 K/uL (4.50-11.00)
[2023-01-08 09:28] LABS: Slide Review Reflex No
[2023-01-08 09:33] LABS: Albumin* 4.7 g/dL (3.3-5.0); Chloride* 99 mmol/L (96-114)
[2023-01-08 09:34] LABS: Potassium* 3.9 mmol/L (3.6-5.1); Sodium* 135 mmol/L (135-149)
[2023-01-08 09:36] LABS: Alkaline Phosphatase* 73 U/L (40-150); Aspartate Amino Transferase* 33 U/L (12-35); Blood Urea Nitrogen* 13 mg/dL (7-30); Carbon Dioxide* 30 mmol/L (20-32); Creatinine* 0.7 mg/dL (0.5-1.5); Estimated Glomerular Filt Rate 96 ml/min; Total Protein* 7.2 g/dL (6.0-8.3)
[2023-01-08 09:37] LABS: Alanine Aminotransferase* 21 U/L (4-50); Calcium* 9.1 mg/dL (8.4-10.6); Glucose* 108 mg/dL (60-115)
--- NOTE | 2023-01-08 15:24 | PC.NURSE ---
Called pt today to review lab results. Pt didn't answer. LM on pt's VM inviting a call back to review. If pt has the EMR portal and doesn't have any questions, he was told he didn't need to call back.
== END 2023-01-13 23:59 | disposition home or self-care (01) ==
LOC: CCIC 09:00
PROVIDERS: PCP Student in an Organized Health Care Education/Training Program; Referring Provider Student in an Organized Health Care Education/Training Program; Visit Provider Internal Medicine Hematology & Oncology
DX: C92.10 Chronic myeloid leukemia, BCR/ABL-positive, not having achieved remission (principal)
CPT/HCPCS: 36415; 80053; 81206; 83615; 84443; 85025; 99212; 99213; 99214

== ENCOUNTER 2023-05-29 11:00 | Outpatient (RCR) | payer MEDICARE, SELFPAY ==
[2023-02-05 09:45] LABS: Basophils Percent Auto 0.3 % (0.0-3.0); Eosinophils Percent Auto 1.8 % (0.0-7.0); Hematocrit 41.5 % (37.0-53.0); Hemoglobin* 13.7 gm/dL (13.5-17.5); Immature Granulocytes Pct Auto 0.3 %; Lymphocytes Percent Auto 20.1 % (20-44); Mean Corpuscular HGB Conc 33 gm/dL (32-36); Mean Corpuscular Hemoglobin 32 pg (26-34); Mean Corpuscular Volume 97 fL (80-100); Monocytes Percent Auto 13.8 % (0.0-11.0); Neutrophils Percent Auto 63.7 % (42.0-72.0); Platelet Count* 204 K/uL (140-440); RDW Coefficient of Variation % 12.7 % (11.5-15.5); Red Blood Count 4.26 m/uL (4.30-5.90); White Blood Count* 3.33 K/uL (4.50-11.00)
[2023-02-05 09:47] LABS: Slide Review Reflex No
[2023-02-05 10:04] LABS: Albumin* 4.4 g/dL (3.3-5.0)
[2023-02-05 10:05] LABS: Chloride* 99 mmol/L (96-114); Potassium* 4.1 mmol/L (3.6-5.1); Sodium* 135 mmol/L (135-149)
[2023-02-05 10:07] LABS: Anion Gap 6 mEq/L (7-15); Aspartate Amino Transferase* 33 U/L (12-35); Bilirubin Total* 0.9 mg/dL (0.1-1.5); Carbon Dioxide* 30 mmol/L (20-32); Creatinine* 0.7 mg/dL (0.5-1.5); Estimated Glomerular Filt Rate 95 ml/min
[2023-02-05 10:08] LABS: Alanine Aminotransferase* 21 U/L (4-50); Alkaline Phosphatase* 92 U/L (40-150); Blood Urea Nitrogen* 16 mg/dL (7-30); Calcium* 8.8 mg/dL (8.4-10.6); Glucose* 88 mg/dL (60-115); Lactate Dehydrogenase* 197 U/L (120-246); Total Protein* 6.8 g/dL (6.0-8.3)
--- NOTE | 2023-02-05 12:16 | ONC.NURNOTE ---
Lab results noted and called to Bird as stable BCR ABL pending follow up with Dr Nath in 2 weeks
[2023-02-12 23:55] LABS: QuantBCR-ABL Major p210 Result Detected; QuantBCR-ABL Major p210 Source Not Provided
[2023-03-05 09:52] LABS: Basophils Percent Auto 0.3 % (0.0-3.0); Eosinophils Percent Auto 2.6 % (0.0-7.0); Hematocrit 40.3 % (37.0-53.0); Hemoglobin* 13.5 gm/dL (13.5-17.5); Immature Granulocytes Pct Auto 0.3 %; Lymphocytes Percent Auto 18.3 % (20-44); Mean Corpuscular HGB Conc 34 gm/dL (32-36); Mean Corpuscular Hemoglobin 32 pg (26-34); Mean Corpuscular Volume 95 fL (80-100); Monocytes Percent Auto 12.6 % (0.0-11.0); Neutrophils Percent Auto 65.9 % (42.0-72.0); Platelet Count* 193 K/uL (140-440); RDW Coefficient of Variation % 12.6 % (11.5-15.5); Red Blood Count 4.23 m/uL (4.30-5.90); White Blood Count* 3.89 K/uL (4.50-11.00)
[2023-03-05 09:58] LABS: Slide Review Reflex No
[2023-03-05 10:15] LABS: Albumin* 4.4 g/dL (3.3-5.0)
[2023-03-05 10:16] LABS: Chloride* 101 mmol/L (96-114); Potassium* 4.3 mmol/L (3.6-5.1); Sodium* 135 mmol/L (135-149)
[2023-03-05 10:18] LABS: Anion Gap 8 mEq/L (7-15); Aspartate Amino Transferase* 32 U/L (12-35); Bilirubin Total* 0.8 mg/dL (0.1-1.5); Carbon Dioxide* 26 mmol/L (20-32); Creatinine* 0.7 mg/dL (0.5-1.5); Estimated Glomerular Filt Rate 95 ml/min
[2023-03-05 10:19] LABS: Alanine Aminotransferase* 21 U/L (4-50); Alkaline Phosphatase* 72 U/L (40-150); Blood Urea Nitrogen* 15 mg/dL (7-30); Calcium* 9.4 mg/dL (8.4-10.6); Glucose* 98 mg/dL (60-115); Total Protein* 6.8 g/dL (6.0-8.3)
[2023-04-09 09:22] LABS: Basophils Percent Auto 0.2 % (0.0-3.0); Hematocrit 42.4 % (37.0-53.0); Hemoglobin* 13.9 gm/dL (13.5-17.5); Immature Granulocytes Pct Auto 0.2 %; Lymphocytes Percent Auto 14.5 % (20-44); Mean Corpuscular HGB Conc 33 gm/dL (32-36); Mean Corpuscular Hemoglobin 32 pg (26-34); Mean Corpuscular Volume 98 fL (80-100); Monocytes Percent Auto 10.9 % (0.0-11.0); Neutrophils Percent Auto 72.2 % (42.0-72.0); Platelet Count* 187 K/uL (140-440); RDW Coefficient of Variation % 12.9 % (11.5-15.5); Red Blood Count 4.35 m/uL (4.30-5.90); White Blood Count* 4.42 K/uL (4.50-11.00)
[2023-04-09 09:38] LABS: Slide Review Reflex No
[2023-04-09 09:45] LABS: Albumin* 4.6 g/dL (3.3-5.0); Chloride* 95 mmol/L (96-114); Potassium* 4.1 mmol/L (3.6-5.1); Sodium* 134 mmol/L (135-149)
[2023-04-09 09:47] LABS: Bilirubin Total* 0.9 mg/dL (0.1-1.5); Creatinine* 0.7 mg/dL (0.5-1.5); Estimated Glomerular Filt Rate 95 ml/min
[2023-04-09 09:48] LABS: Alanine Aminotransferase* 20 U/L (4-50); Alkaline Phosphatase* 75 U/L (40-150); Anion Gap 9 mEq/L (7-15); Aspartate Amino Transferase* 32 U/L (12-35); Blood Urea Nitrogen* 17 mg/dL (7-30); Calcium* 9.1 mg/dL (8.4-10.6); Carbon Dioxide* 30 mmol/L (20-32); Glucose* 84 mg/dL (60-115); Total Protein* 7.1 g/dL (6.0-8.3)
[2023-05-15 09:47] LABS: Basophils Percent Auto 0.3 % (0.0-3.0); Eosinophils Percent Auto 3.1 % (0.0-7.0); Hematocrit 41.7 % (37.0-53.0); Hemoglobin* 13.8 gm/dL (13.5-17.5); Lymphocytes Percent Auto 18.2 % (20-44); Mean Corpuscular HGB Conc 33 gm/dL (32-36); Mean Corpuscular Hemoglobin 32 pg (26-34); Mean Corpuscular Volume 97 fL (80-100); Monocytes Percent Auto 12.2 % (0.0-11.0); Neutrophils Percent Auto 66.2 % (42.0-72.0); Platelet Count* 193 K/uL (140-440); RDW Coefficient of Variation % 12.7 % (11.5-15.5); Red Blood Count 4.28 m/uL (4.30-5.90); White Blood Count* 3.19 K/uL (4.50-11.00)
[2023-05-15 09:52] LABS: Slide Review Reflex No
[2023-05-15 10:08] LABS: Albumin* 4.7 g/dL (3.3-5.0); Chloride* 100 mmol/L (96-114)
[2023-05-15 10:09] LABS: Potassium* 4.2 mmol/L (3.6-5.1); Sodium* 133 mmol/L (135-149)
[2023-05-15 10:11] LABS: Alkaline Phosphatase* 83 U/L (40-150); Anion Gap 6 mEq/L (7-15); Aspartate Amino Transferase* 33 U/L (12-35); Bilirubin Total* 0.9 mg/dL (0.1-1.5); Blood Urea Nitrogen* 15 mg/dL (7-30); Carbon Dioxide* 27 mmol/L (20-32); Creatinine* 0.6 mg/dL (0.5-1.5); Estimated Glomerular Filt Rate 100 ml/min; Glucose* 91 mg/dL (60-115); Total Protein* 7.2 g/dL (6.0-8.3)
[2023-05-15 10:12] LABS: Alanine Aminotransferase* 21 U/L (4-50); Calcium* 8.8 mg/dL (8.4-10.6); Lactate Dehydrogenase* 219 U/L (120-246)
--- NOTE | 2023-05-15 10:59 | ONC.NURNOTE ---
Here for lab work, reports no concerns or changes active labs noted and called to Bird follow up in 2 weeks BCR/ABL drawn today
[2023-05-23 14:06] LABS: QuantBCR-ABL Major p210 Result Detected; QuantBCR-ABL Major p210 Source Whole Blood; QuantBCR-ABLMajor p210 IS % 0.3293 %
--- NOTE | 2023-06-21 15:19 | ONC.NURNOTE ---
[facility]- re-enrolled to receive Bosulif at no charge thru 06/09/2024 message left on patients voicemail
== END 2023-08-04 23:59 | disposition home or self-care (01) ==
LOC: CCIC 11:00
PROVIDERS: PCP Student in an Organized Health Care Education/Training Program; Referring Provider Student in an Organized Health Care Education/Training Program; Visit Provider Internal Medicine Hematology & Oncology
DX: C92.10 Chronic myeloid leukemia, BCR/ABL-positive, not having achieved remission (principal); E16.2 Hypoglycemia, unspecified; R74.01 Elevation of levels of liver transaminase levels
CPT/HCPCS: 36415; 80053; 81206; 83615; 85025; 99212; 99213; 99214

== ENCOUNTER 2023-11-27 14:00 | Outpatient (RCR) | payer MEDICARE, SELFPAY ==
[2023-08-14 09:56] LABS: Basophils Percent Auto 0.3 % (0.0-3.0); Hematocrit 41.8 % (37.0-53.0); Hemoglobin* 13.9 gm/dL (13.5-17.5); Immature Granulocytes Pct Auto 0.3 %; Lymphocytes Percent Auto 16.5 % (20-44); Mean Corpuscular HGB Conc 33 gm/dL (32-36); Mean Corpuscular Hemoglobin 32 pg (26-34); Mean Corpuscular Volume 96 fL (80-100); Neutrophils Percent Auto 67.9 % (42.0-72.0); Platelet Count* 190 K/uL (140-440); RDW Coefficient of Variation % 12.8 % (11.5-15.5); Red Blood Count 4.37 m/uL (4.30-5.90); White Blood Count* 3.34 K/uL (4.50-11.00)
[2023-08-14 10:08] LABS: Slide Review Reflex No
[2023-08-14 10:30] LABS: Albumin* 4.4 g/dL (3.3-5.0)
[2023-08-14 10:31] LABS: Chloride* 101 mmol/L (96-114); Potassium* 4.7 mmol/L (3.6-5.1); Sodium* 136 mmol/L (135-149)
[2023-08-14 10:33] LABS: Alkaline Phosphatase* 85 U/L (40-150); Anion Gap 5 mEq/L (7-15); Aspartate Amino Transferase* 30 U/L (12-35); Carbon Dioxide* 30 mmol/L (20-32); Creatinine* 0.7 mg/dL (0.5-1.5); Estimated Glomerular Filt Rate 95 ml/min; Total Protein* 6.7 g/dL (6.0-8.3)
[2023-08-14 10:34] LABS: Alanine Aminotransferase* 18 U/L (4-50); Blood Urea Nitrogen* 12 mg/dL (7-30); Calcium* 9.4 mg/dL (8.4-10.6); Glucose* 78 mg/dL (60-115); Lactate Dehydrogenase* 194 U/L (120-246)
--- NOTE | 2023-08-14 11:07 | ONC.NURNOTE ---
Lab results noted as stable and called to Bird- BCR ABL pending - patient has follow up 08/27/23 to review all labs
[2023-08-21 13:43] LABS: QuantBCR-ABL Major p210 Result Detected; QuantBCR-ABL Major p210 Source Whole Blood
[2023-11-12 09:19] LABS: Basophils Absolute Auto 0.01 K/uL (0.00-0.30); Basophils Percent Auto 0.2 % (0.0-3.0); Eosinophils Absolute Auto 0.04 K/uL (0.00-0.50); Eosinophils Percent Auto 0.8 % (0.0-7.0); Hematocrit 40.5 % (37.0-53.0); Hemoglobin* 13.6 gm/dL (13.5-17.5); Immature Granulocytes Abs Auto 0.02 K/uL (0.00-0.30); Immature Granulocytes Pct Auto 0.4 %; Lymphocytes Percent Auto 10.8 % (20-44); Mean Corpuscular HGB Conc 34 gm/dL (32-36); Mean Corpuscular Hemoglobin 32 pg (26-34); Mean Corpuscular Volume 95 fL (80-100); Monocytes Percent Auto 10.2 % (0.0-11.0); Neutrophils Percent Auto 77.6 % (42.0-72.0); Platelet Count* 181 K/uL (140-440); RDW Coefficient of Variation % 12.8 % (11.5-15.5); Red Blood Count 4.27 m/uL (4.30-5.90)
[2023-11-12 09:27] LABS: Slide Review Reflex No
[2023-11-12 09:32] LABS: Albumin* 4.6 g/dL (3.3-5.0); Chloride* 98 mmol/L (96-114); Sodium* 133 mmol/L (135-149)
[2023-11-12 09:33] LABS: Potassium* 4.3 mmol/L (3.6-5.1)
[2023-11-12 09:35] LABS: Alanine Aminotransferase* 18 U/L (4-50); Alkaline Phosphatase* 72 U/L (40-150); Anion Gap 5 mEq/L (7-15); Aspartate Amino Transferase* 33 U/L (12-35); Bilirubin Total* 1.5 mg/dL (0.1-1.5); Blood Urea Nitrogen* 14 mg/dL (7-30); Carbon Dioxide* 30 mmol/L (20-32); Creatinine* 0.7 mg/dL (0.5-1.5); Estimated Glomerular Filt Rate 95 ml/min; Glucose* 119 mg/dL (60-115); Lactate Dehydrogenase* 183 U/L (120-246); Total Protein* 7.3 g/dL (6.0-8.3)
--- NOTE | 2023-11-12 12:24 | ONC.NURNOTE ---
Lab results noted and called to patient- discussed change in bilirubin to the ULN patient reports drinking 2-3 oz of his own home made low alcohol beer discussed limits with bosutinib- that elevated LFTs may occur limit tylenol- which patient does not use sees Dr Ntah in 2 weeks
[2023-11-20 15:34] LABS: QuantBCR-ABL Major p210 Result Detected; QuantBCR-ABL Major p210 Source Whole Blood
--- NOTE | 2023-11-29 08:47 | PC.NURSE ---
Sajan called today to report that he received notice that [employer] had a data breech and he was identified as someone whose data was compromised. Bird asked to speak with Kristine public address system operator about this. She is out until Saturday, will ask Kristine to call Bird upon her return with any additional information she may have.
== END 2024-02-10 23:59 | disposition home or self-care (01) ==
LOC: CCIC 14:00
PROVIDERS: PCP Student in an Organized Health Care Education/Training Program; Referring Provider Student in an Organized Health Care Education/Training Program; Visit Provider Internal Medicine Hematology & Oncology
DX: C92.10 Chronic myeloid leukemia, BCR/ABL-positive, not having achieved remission (principal); E16.2 Hypoglycemia, unspecified
CPT/HCPCS: 36415; 80053; 81206; 83615; 85025; 99213; 99214; G0463

== ENCOUNTER 2024-08-10 09:30 | Outpatient (RCR) | payer MEDICARE, SELFPAY ==
[2024-02-12 10:02] LABS: Basophils Percent Auto 0.3 % (0.0-3.0); Eosinophils Percent Auto 1.2 % (0.0-7.0); Hematocrit 40.1 % (37.0-53.0); Hemoglobin* 13.2 gm/dL (13.5-17.5); Immature Granulocytes Pct Auto 0.3 %; Lymphocytes Percent Auto 17.6 % (20-44); Mean Corpuscular HGB Conc 33 gm/dL (32-36); Mean Corpuscular Hemoglobin 32 pg (26-34); Mean Corpuscular Volume 96 fL (80-100); Monocytes Percent Auto 13.9 % (0.0-11.0); Neutrophils Percent Auto 66.7 % (42.0-72.0); Platelet Count* 174 K/uL (140-440); Red Blood Count 4.17 m/uL (4.30-5.90); White Blood Count* 3.24 K/uL (4.50-11.00)
[2024-02-12 10:06] LABS: Slide Review Reflex No
[2024-02-12 10:15] LABS: Albumin* 4.5 g/dL (3.3-5.0); Chloride* 100 mmol/L (96-114); Potassium* 4.1 mmol/L (3.6-5.1); Sodium* 134 mmol/L (135-149)
[2024-02-12 10:17] LABS: Bilirubin Total* 0.9 mg/dL (0.1-1.5); Creatinine* 0.7 mg/dL (0.5-1.5); Estimated Glomerular Filt Rate 95 ml/min
[2024-02-12 10:18] LABS: Alanine Aminotransferase* 18 U/L (4-50); Alkaline Phosphatase* 94 U/L (40-150); Anion Gap 3 mEq/L (7-15); Aspartate Amino Transferase* 31 U/L (12-35); Blood Urea Nitrogen* 15 mg/dL (7-30); Calcium* 8.9 mg/dL (8.4-10.6); Carbon Dioxide* 31 mmol/L (20-32); Glucose* 92 mg/dL (60-115); Total Protein* 6.6 g/dL (6.0-8.3)
--- NOTE | 2024-02-12 14:20 | ONC.NURNOTE ---
lab results called to patient Na noted- salt food follow up with Dr Nath in 2 weeks BCR ABL pending
[2024-02-17 16:51] LABS: QuantBCR-ABL Major p210 Result Detected; QuantBCR-ABL Major p210 Source Whole Blood
--- NOTE | 2024-04-22 12:39 | ONC.NURNOTE ---
Addendum entered by Kristine Plasencia RN 04/23/24 14:25: PA approved for ophelia from [facility] 04/23/24-04/23/25 [phone] Original Note: PA completed for Monica and signed by Dr Nath faxed to [facility] at [phone] and to [facility] at [phone]
[2024-05-12 10:02] LABS: Basophils Percent Auto 0.3 % (0.0-3.0); Eosinophils Percent Auto 4.8 % (0.0-7.0); Hematocrit 42.3 % (37.0-53.0); Hemoglobin* 13.9 gm/dL (13.5-17.5); Lymphocytes Percent Auto 18.1 % (20-44); Mean Corpuscular HGB Conc 33 gm/dL (32-36); Mean Corpuscular Hemoglobin 31 pg (26-34); Mean Corpuscular Volume 96 fL (80-100); Monocytes Percent Auto 12.7 % (0.0-11.0); Neutrophils Percent Auto 64.1 % (42.0-72.0); Platelet Count* 194 K/uL (140-440); RDW Coefficient of Variation % 12.6 % (11.5-15.5); Red Blood Count 4.42 m/uL (4.30-5.90); White Blood Count* 3.53 K/uL (4.50-11.00)
[2024-05-12 10:07] LABS: Slide Review Reflex No
[2024-05-12 10:21] LABS: Albumin* 4.6 g/dL (3.3-5.0); Chloride* 100 mmol/L (96-114); Potassium* 4.1 mmol/L (3.6-5.1); Sodium* 134 mmol/L (135-149)
[2024-05-12 10:24] LABS: Alanine Aminotransferase* 23 U/L (4-50); Alkaline Phosphatase* 77 U/L (40-150); Anion Gap 5 mEq/L (7-15); Aspartate Amino Transferase* 32 U/L (12-35); Bilirubin Total* 0.8 mg/dL (0.1-1.5); Blood Urea Nitrogen* 15 mg/dL (7-30); Calcium* 9.4 mg/dL (8.4-10.6); Carbon Dioxide* 29 mmol/L (20-32); Creatinine* 0.7 mg/dL (0.5-1.5); Est. Creatinine Clearance* 53.73; Estimated Glomerular Filt Rate 95 ml/min; Glucose* 77 mg/dL (60-115); Lactate Dehydrogenase* 200 U/L (120-246); Total Protein* 6.9 g/dL (6.0-8.3)
[2024-05-18 22:49] LABS: QuantBCR-ABL Major p210 Result Detected; QuantBCR-ABL Major p210 Source Whole Blood; QuantBCR-ABLMajor p210 IS % 0.3742 %
[2024-08-10 09:53] LABS: Basophils Percent Auto 0.3 % (0.0-3.0); Eosinophils Percent Auto 1.2 % (0.0-7.0); Hematocrit 42.7 % (37.0-53.0); Hemoglobin* 14.1 gm/dL (13.5-17.5); Lymphocytes Percent Auto 18.6 % (20-44); Mean Corpuscular HGB Conc 33 gm/dL (32-36); Mean Corpuscular Hemoglobin 32 pg (26-34); Mean Corpuscular Volume 96 fL (80-100); Monocytes Percent Auto 12.1 % (0.0-11.0); Neutrophils Percent Auto 67.8 % (42.0-72.0); Platelet Count* 190 K/uL (140-440); RDW Coefficient of Variation % 12.6 % (11.5-15.5); Red Blood Count 4.44 m/uL (4.30-5.90); White Blood Count* 3.22 K/uL (4.50-11.00)
[2024-08-10 09:57] LABS: Slide Review Reflex No
[2024-08-10 10:04] LABS: Albumin* 4.6 g/dL (3.3-5.0); Chloride* 97 mmol/L (96-114); Potassium* 4.2 mmol/L (3.6-5.1); Sodium* 133 mmol/L (135-149)
[2024-08-10 10:07] LABS: Alanine Aminotransferase* 21 U/L (4-50); Alkaline Phosphatase* 67 U/L (40-150); Anion Gap 6 mEq/L (7-15); Aspartate Amino Transferase* 29 U/L (12-35); Bilirubin Total* 0.9 mg/dL (0.1-1.5); Blood Urea Nitrogen* 16 mg/dL (7-30); Calcium* 9.1 mg/dL (8.4-10.6); Carbon Dioxide* 30 mmol/L (20-32); Creatinine* 0.7 mg/dL (0.5-1.5); Est. Creatinine Clearance* 55.74; Estimated Glomerular Filt Rate 95 ml/min; Glucose* 79 mg/dL (60-115); Total Protein* 6.8 g/dL (6.0-8.3)
[2024-08-14 16:55] LABS: QuantBCR-ABL Major p210 Result Detected; QuantBCR-ABL Major p210 Source Whole Blood
== END 2024-08-10 23:59 | disposition home or self-care (01) ==
LOC: CCIC 09:30
PROVIDERS: Clinical Nurse Specialist; PCP Student in an Organized Health Care Education/Training Program; Referring Provider Student in an Organized Health Care Education/Training Program; Visit Provider Internal Medicine Hematology & Oncology
DX: C92.10 Chronic myeloid leukemia, BCR/ABL-positive, not having achieved remission (principal)
CPT/HCPCS: 36415; 80053; 81206; 83615; 85025; 99213; 99214; G0463

== ENCOUNTER 2025-02-10 09:30 | Outpatient (RCR) | payer MEDICARE, SELFPAY ==
[2024-11-16 09:57] LABS: Hematocrit 41.1 % (37.0-53.0); Hemoglobin* 13.5 gm/dL (13.5-17.5); Immature Granulocytes Pct Auto 0.3 %; Mean Corpuscular HGB Conc 33 gm/dL (32-36); Mean Corpuscular Hemoglobin 32 pg (26-34); Mean Corpuscular Volume 97 fL (80-100); RDW Coefficient of Variation % 12.8 % (11.5-15.5); Red Blood Count 4.23 m/uL (4.30-5.90); White Blood Count* 3.34 K/uL (4.50-11.00)
[2024-11-16 10:04] LABS: Immature Granulocytes Abs Auto 0.00 K/uL (0.00-0.30); Lymphocytes Absolute Auto 0.70 K/uL (0.90-2.90); Slide Review Reflex No
[2024-11-16 10:07] LABS: Albumin* 4.4 g/dL (3.3-5.0); Chloride* 100 mmol/L (96-114); Potassium* 4.2 mmol/L (3.6-5.1); Sodium* 136 mmol/L (135-149)
[2024-11-16 10:10] LABS: Alanine Aminotransferase* 19 U/L (4-50); Alkaline Phosphatase* 62 U/L (40-150); Anion Gap 6 mEq/L (7-15); Aspartate Amino Transferase* 36 U/L (12-35); Bilirubin Total* 1.0 mg/dL (0.1-1.5); Blood Urea Nitrogen* 17 mg/dL (7-30); Calcium* 9.5 mg/dL (8.4-10.6); Carbon Dioxide* 30 mmol/L (20-32); Creatinine* 0.7 mg/dL (0.5-1.5); Est. Creatinine Clearance* 54.43; Estimated Glomerular Filt Rate 95 ml/min; Glucose* 97 mg/dL (60-115); Total Protein* 6.8 g/dL (6.0-8.3)
[2024-11-19 19:01] LABS: QuantBCR-ABL Major p210 Result Detected; QuantBCR-ABL Major p210 Source Not Provided; QuantBCR-ABLMajor p210 IS % 0.4093 %
--- NOTE | 2024-11-23 13:58 | ONC.NURNOTE ---
noted rise in BCR/ABL results reviewed by Dr Nath no change in plan at this time Left message on voice mail to call for results
[2025-02-10 09:50] LABS: Hematocrit 38.7 % (37.0-53.0); Hemoglobin* 12.8 gm/dL (13.5-17.5); Immature Granulocytes Abs Auto 0.00 K/uL (0.00-0.30); Immature Granulocytes Pct Auto 0.0 %; Mean Corpuscular HGB Conc 33 gm/dL (32-36); Mean Corpuscular Hemoglobin 32 pg (26-34); Mean Corpuscular Volume 97 fL (80-100); RDW Coefficient of Variation % 12.9 % (11.5-15.5); Red Blood Count 3.99 m/uL (4.30-5.90); White Blood Count* 2.94 K/uL (4.50-11.00)
[2025-02-10 09:51] LABS: Lymphocytes Absolute Auto 0.60 K/uL (0.90-2.90); Slide Review Reflex No
[2025-02-10 10:07] LABS: Albumin* 4.2 g/dL (3.3-5.0); Chloride* 99 mmol/L (96-114)
[2025-02-10 10:08] LABS: Potassium* 4.1 mmol/L (3.6-5.1); Sodium* 132 mmol/L (135-149)
[2025-02-10 10:10] LABS: Alanine Aminotransferase* 20 U/L (4-50); Alkaline Phosphatase* 76 U/L (40-150); Anion Gap 3 mEq/L (7-15); Aspartate Amino Transferase* 36 U/L (12-35); Bilirubin Total* 0.8 mg/dL (0.1-1.5); Blood Urea Nitrogen* 13 mg/dL (7-30); Carbon Dioxide* 30 mmol/L (20-32); Creatinine* 0.7 mg/dL (0.5-1.5); Est. Creatinine Clearance* 53.56; Estimated Glomerular Filt Rate 94 ml/min; Total Protein* 6.4 g/dL (6.0-8.3)
[2025-02-10 10:11] LABS: Calcium* 8.8 mg/dL (8.4-10.6); Glucose* 81 mg/dL (60-115)
[2025-02-14 16:27] LABS: QuantBCR-ABL Major p210 Result Detected; QuantBCR-ABL Major p210 Source Whole Blood; QuantBCR-ABLMajor p210 IS % 0.6522 %
== END 2025-02-14 23:59 | disposition home or self-care (01) ==
LOC: CCIC 09:30
PROVIDERS: PCP Student in an Organized Health Care Education/Training Program; Referring Provider Student in an Organized Health Care Education/Training Program; Visit Provider Internal Medicine Hematology & Oncology
DX: C92.10 Chronic myeloid leukemia, BCR/ABL-positive, not having achieved remission (principal)
CPT/HCPCS: 36415; 80053; 81206; 83615; 85025; 99213; 99214; G0463